=== PATIENT | male | born 1970 | race Hispanic/Latino ===

== ENCOUNTER 2021-05-12 12:31 | Emergency (ER) | payer OTHER ==
[~2021-05-12] VITALS: Ht 167.6 cm; Wt 99.3 kg
[2021-05-12 12:33] VITALS: BP 134/90
[2021-05-12] MEDS ORDERED: HYDROCODONE/ACETAMINOPHEN 5/325 MG TAB PO ONE (15:30)
[2021-05-12] MEDS ORDERED: KETOROLAC 30MG VIAL (30MG/ML) IM ONE (15:30)
[2021-05-12] MEDS ORDERED: IBUP-2070 PO (16:21)
[2021-05-12] MEDS ORDERED: METH4TAB3 PO (16:21)
[2021-05-12] MEDS ORDERED: CYCL5TAB PO (16:21)
== END 2021-05-12 16:30 | disposition home or self-care (01) ==
LOC: EDH 12:31
DX: M43.6 Torticollis (principal); Z79.1 Long term (current) use of non-steroidal anti-inflammatories (NSAID); Z79.52 Long term (current) use of systemic steroids
CPT/HCPCS: 72125; 96372; 99284; J1885

== ENCOUNTER 2021-09-16 12:42 | Emergency (ER) | payer OTHER ==
[~2021-09-16] VITALS: Ht 167.6 cm; Wt 93.9 kg
[~2021-09-16 12:42] MED LIST: CYCL5TAB PO; IBUP-2070 PO; METH4TAB3 PO
[2021-09-16 12:46] VITALS: BP 108/78
[2021-09-16] MEDS ORDERED: OSEL75 PO (15:31)
[2021-09-16] MEDS ORDERED: BENZ-39 PO (15:31)
[2021-09-16] MEDS ORDERED: DICL50TA9 PO (15:31)
== END 2021-09-16 15:39 | disposition home or self-care (01) ==
LOC: EDH 12:42
DX: J10.1 Influenza due to other identified influenza virus with other respiratory manifestations (principal); Z20.822 Contact with and (suspected) exposure to COVID-19; F17.210 Nicotine dependence, cigarettes, uncomplicated; Z79.1 Long term (current) use of non-steroidal anti-inflammatories (NSAID); Z79.52 Long term (current) use of systemic steroids
CPT/HCPCS: 71045; 87635; 87804 ×2; 99284; C9803

== ENCOUNTER 2021-09-23 14:23 | Emergency (ER) | payer OTHER ==
[~2021-09-23] VITALS: Ht 167.6 cm; Wt 94.8 kg
[~2021-09-23 14:23] MED LIST changes: +BENZ-39 PO; +DICL50TA9 PO; +OSEL75 PO
[2021-09-23 15:17] LABS: BASOPHILS % (AUTO) 0.8 % (0.0-5.0); EOSINOPHILS % (AUTO) 4.7 % (0.0-8.0); HEMATOCRIT 43.7 % (42-54); LYMPHOCYTES % (AUTO) 34.6 % (21.0-51.0); MEAN CORPUSCULAR HEMOGLOBIN 27.7 pg (27.0-33.0); MEAN CORPUSCULAR HGB CONC 31.8 g/dL (32.0-36.0); MEAN CORPUSCULAR VOLUME 87.1 fL (79-99); MONOCYTES % (AUTO) 5.6 % (3.0-13.0); NEUTROPHILS % (AUTO) 53.8 % (40.0-77.0); PLATELET COUNT (AUTO) 388 K/uL (130-400); RED BLOOD CELL COUNT(AUTO) 5.02 MIL/uL (4.50-6.20); RED CELL DISTRIBUTION WIDTH 13.7 % (11.0-15.5); WHITE BLOOD COUNT (AUTO) 6.6 K/uL (4.8-10.8)
[2021-09-23 15:27] LABS: CREATININE 1.3 mg/dL (0.5-1.5); POTASSIUM 4.1 mmol/L (3.5-5.1)
[2021-09-23] MEDS ORDERED: PREDNISONE 20 MG TABLET PO ONE (15:30)
[2021-09-23] MEDS ORDERED: IPRATROPIUM/ALBUTEROL SULFATE 3 ML SOLUTION IH ONE (15:30)
[2021-09-23 15:31] LABS: ALBUMIN 3.7 g/dL (3.5-5.0); BILIRUBIN,TOTAL 0.3 mg/dL (0.2-1.0); TOTAL PROTEIN, SERUM 7.8 g/dL (6.0-8.3)
[2021-09-23] MEDS ORDERED: ALBU8.5H8 IH (16:42)
[2021-09-23] MEDS ORDERED: PRED20TA3 PO (16:42)
[2021-09-23 16:57] VITALS: BP 122/79
== END 2021-09-23 16:55 | disposition home or self-care (01) ==
LOC: EDH 14:23
DX: J45.909 Unspecified asthma, uncomplicated (principal); Z79.899 Other long term (current) drug therapy; Z98.890 Other specified postprocedural states
CPT/HCPCS: 36415; 71045; 80053; 85025; 94640

== ENCOUNTER 2023-02-15 19:22 | Emergency (ER) | payer OTHER ==
[~2023-02-15] VITALS: Ht 167.6 cm; Wt 96.6 kg
[~2023-02-15 19:22] MED LIST changes: +ALBU8.5H8 IH; +PRED20TA3 PO
[2023-02-15 23:34] LABS: RAPID GROUP A STREP negative (NEGATIVE)
[2023-02-15 23:38] LABS: SARS-CoV-2, RNA, NAAT NEGATIVE SARS CoV-2 (NEGATIVE)
[2023-02-15 23:44] LABS: INFLUENZA TYPE A Negative For Type A (NEGATIVE); INFLUENZA TYPE B Negative For Type B (NEGATIVE)
[2023-02-16 00:24] VITALS: BP 141/83; PULSE 79; RESP 16; O2SAT 98
[2023-02-16] MEDS ORDERED: LACTATED RINGERS 1000ML 1,000 ML IV ONE (00:30)
[2023-02-16 00:37] LABS: BASOPHILS # (AUTO) 0.06 K/uL (0.00-0.20); BASOPHILS % (AUTO) 0.7 % (0.0-5.0); EOSINOPHILS # (AUTO) 0.28 K/uL (0.00-0.70); EOSINOPHILS % (AUTO) 3.5 % (0.0-8.0); HEMATOCRIT 41.9 % (42-54); IMMATURE GRANULOCYTE ABSOLUTE 0.01 K/uL (0-1); LYMPHOCYTES # (AUTO) 2.9 K/uL (1.0-4.8); LYMPHOCYTES % (AUTO) 35.9 % (21.0-51.0); MEAN CORPUSCULAR HEMOGLOBIN 29.9 pg (27.0-33.0); MEAN CORPUSCULAR HGB CONC 32.5 g/dL (32.0-36.0); MEAN CORPUSCULAR VOLUME 92.1 fL (79-99); MONOCYTES # (AUTO) 0.6 K/uL (0.1-1.0); MONOCYTES % (AUTO) 6.8 % (3.0-13.0); NEUTROPHILS # (AUTO) 4.3 K/uL (1.8-7.7); PLATELET COUNT (AUTO) 285 K/uL (130-400); RED BLOOD CELL COUNT(AUTO) 4.55 MIL/uL (4.50-6.20); RED CELL DISTRIBUTION WIDTH 13.8 % (11.0-15.5); WHITE BLOOD COUNT (AUTO) 8.1 K/uL (4.8-10.8)
[2023-02-16 00:38] LABS: POTASSIUM 4.2 mmol/L (3.5-5.1)
[2023-02-16 00:39] LABS: ADD UA MICROSCOPIC YES; APPEARANCE,URINE CLEAR (CLEAR); BILIRUBIN,URINE NEGATIVE (NEGATIVE); COLOR,URINE YELLOW (YELLOW); GLUCOSE, URINE (UA) NEGATIVE (NEGATIVE); KETONES,URINE NEGATIVE (NEGATIVE); LEUKOCYTE ESTERASE ,URINE 250 Leu/uL (NEGATIVE); NITRATE,URINE NEGATIVE (NEGATIVE); OCCULT BLOOD,URINE SMALL (NEGATIVE); PH,URINE 5.5 (5.0-8.0); PROTEIN,URINE 20 mg/dL (NEGATIVE); UROBILINOGEN,URINE 0.2 mg/dL (0.2-1.0)
[2023-02-16 00:42] LABS: ALBUMIN 3.8 g/dL (3.5-5.0); BILIRUBIN,TOTAL 0.4 mg/dL (0.2-1.0); TOTAL PROTEIN, SERUM 7.7 g/dL (6.0-8.3)
[2023-02-16 00:43] LABS: CALCIUM OXALATE CRYSTALS,UR RARE /LPF (None Seen); MUCUS,URINE FEW LPF (None Seen); SQUAMOUS EPITHELIAL CELL,UR FEW /HPF (0-2)
[2023-02-16] MEDS ORDERED: CEFTRIAXONE 2GM VIAL IVPB ONE ×2 (02:30)
[2023-02-16] MEDS ORDERED: CEPH500B PO (02:30)
== END 2023-02-16 03:23 | disposition home or self-care (01) ==
LOC: EDH 19:22
DX: N39.0 Urinary tract infection, site not specified (principal); A08.4 Viral intestinal infection, unspecified; Z20.822 Contact with and (suspected) exposure to COVID-19
CPT/HCPCS: 99283; 87635; 80053; 83690; 85025; 87088; 87880; 87804 ×2; 81001; 36415; 96374; 96361; C9803; J7120; J0696

== ENCOUNTER 2024-01-03 21:01 | Emergency (ER) | payer SELFPAY ==
[~2024-01-03] VITALS: Ht 167.6 cm; Wt 98.9 kg
[~2024-01-03 21:01] MED LIST changes: +CEPH500B PO
[2024-01-03] MEDS: KETOROLAC 15MG/ML VIAL (15MG/ML) IM ONE (22:51)
[2024-01-04 00:23] VITALS: BP 142/76; PULSE 82; RESP 16; O2SAT 99
== END 2024-01-04 00:29 | disposition home or self-care (01) ==
LOC: EDH 21:01
DX: S90.32XA Contusion of left foot, initial encounter (principal); Z79.899 Other long term (current) drug therapy; Z98.890 Other specified postprocedural states; W22.09XA Striking against other stationary object, initial encounter; Y93.89 Activity, other specified; Y92.89 Other specified places as the place of occurrence of the external cause; Y99.8 Other external cause status
CPT/HCPCS: 99284; 73630; 73660; 96372; 29125; J1885

== ENCOUNTER 2024-01-09 18:51 | Emergency (ER) | payer SELFPAY ==
[~2024-01-09] VITALS: Ht 167.6 cm; Wt 96.2 kg
[2024-01-09] MEDS: KETOROLAC 30MG VIAL (30MG/ML) IM ONE (20:03)
[2024-01-09 20:28] VITALS: BP 161/99; PULSE 90; RESP 16; O2SAT 99
== END 2024-01-09 20:39 | disposition home or self-care (01) ==
LOC: EDH 18:51
DX: M79.672 Pain in left foot (principal); Z79.899 Other long term (current) drug therapy; Z98.890 Other specified postprocedural states
CPT/HCPCS: 99285; 73700; 96372; J1885; 96374